=== PATIENT | male | born 1955 | race Caucasian/White ===

== ENCOUNTER 2021-05-13 16:21 | Observation (INO) ==
--- NOTE | 2021-05-13 21:19 | Emergency Department Note ---
History of Present Illness General Chief complaint: Illness Stated complaint: POSTIVE CT Time Seen by Provider: 05/13/21 21:18 Source: patient Mode of arrival: ambulatory Limitations: no limitations History of Present Illness Provider complaint: Referral due to concern for outpatient CT scan and hematuria Onset (ago): week(s) 1 Location: abdomen (Flank) Radiation: non-radiation Severity: mild Pain Consistency: + constant Quality: + sharp Relieved By: + none Exacerbated By: + none Associated symptoms: no chest pain, no cough, no fever/chills, no headaches, no malaise, no nausea/vomiting or no shortness of breath Treatments prior to arrival: none Patient does present from home after being referred in for an outpatient CT scan which was completed due to the patient's hematuria. Patient has not taken anything for pain at home. The patient has had occasional left-sided flank pain. No history of kidney stones. Home Medications Medication Instructions Recorded Confirmed Type vit C,E,zinc,copper-krcpe6i 250 2 cap PO DAILY cap 07/15/19 05/13/21 History mg-lutein 5 mg-zeaxanthin 1 mg capsule (Ocuvite Adult 50 Plus) atorvastatin 10 mg tablet 10 mg PO DAILY #90 tab 03/15/21 05/13/21 Rx Allergies Allergy/AdvReac Type Severity Reaction Status Date / Time No Known Allergies Allergy Verified 05/13/21 20:43 Past Med/Surg History Medical History (Updated 05/14/21 @ 01:19 by Black Kelly MD) Hyperlipidemia Surgical History S/P LASIK surgery Family History Father Cardiac disorder Hypertension Uncle Colorectal cancer Denies family history of Ovarian cancer Prostate cancer Breast cancer Social History Smoking Status: Never smoker Hx Alcohol Use: No Hx Substance Use: No Preferred Language: Belarusian Communication Ability: Effective Visual Impairment: No Limitations Hearing Ability: Normal 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 and A total of 10 systems reviewed and were otherwise negative Physical Exam Vital Signs Vital Signs - 24 hr 05/13/21 16:57 05/13/21 21:19 05/13/21 21:24 Temperature 36.7 C Temperature Source Temporal Artery Scan Pulse Rate 86 71 72 Pulse Rate [Apical] 74 Pulse Rate from SpO2 Sensor 71 Respiratory Rate 20 17 20 Respiratory Effort / Characteristics Non-Labored Spontaneous Respiratory Depth Normal Respiratory Pattern Regular Blood Pressure 117/73 131/76 Blood Pressure [Right Arm] 131/76 Blood Pressure Mean 87 94 Blood Pressure Mean [Right Arm] 94 Pulse Oximetry 97 95 96 Oxygen Delivery Method Room Air Room Air Sepsis Recent Fever Within 48 Hours No Sepsis New/Unexplained Change in Mental Status No Sepsis Action Taken by Nursing No Action Required 05/13/21 21:30 05/13/21 22:00 05/13/21 22:30 Temperature Temperature Source Pulse Rate 71 Pulse Rate [Apical] Pulse Rate from SpO2 Sensor 71 73 68 Respiratory Rate 22 Respiratory Effort / Characteristics Respiratory Depth Respiratory Pattern Blood Pressure 124/77 126/72 124/71 Blood Pressure [Right Arm] Blood Pressure Mean 92 90 88 Blood Pressure Mean [Right Arm] Pulse Oximetry 94 96 96 Oxygen Delivery Method Sepsis Recent Fever Within 48 Hours Sepsis New/Unexplained Change in Mental Status Sepsis Action Taken by Nursing 05/13/21 23:00 05/13/21 23:30 05/14/21 00:00 Temperature Temperature Source Pulse Rate Pulse Rate [Apical] Pulse Rate from SpO2 Sensor 75 71 68 Respiratory Rate Respiratory Effort / Characteristics Respiratory Depth Respiratory Pattern Blood Pressure 124/71 132/83 121/74 Blood Pressure [Right Arm] Blood Pressure Mean 88 99 89 Blood Pressure Mean [Right Arm] Pulse Oximetry 99 97 96 Oxygen Delivery Method Sepsis Recent Fever Within 48 Hours Sepsis New/Unexplained Change in Mental Status Sepsis Action Taken by Nursing 05/14/21 00:30 Temperature Temperature Source Pulse Rate Pulse Rate [Apical] Pulse Rate from SpO2 Sensor 64 Respiratory Rate Respiratory Effort / Characteristics Respiratory Depth Respiratory Pattern Blood Pressure 113/79 Blood Pressure [Right Arm] Blood Pressure Mean 90 Blood Pressure Mean [Right Arm] Pulse Oximetry 95 Oxygen Delivery Method Sepsis Recent Fever Within 48 Hours Sepsis New/Unexplained Change in Mental Status Sepsis Action Taken by Nursing GENERAL: Wearing a mask and glasses. NAD, non-toxic. EYE EXAM: Normal conjunctiva. PERRL, no anisocoria and EOM's grossly intact w/o pain. NECK: Supple, no nuchal rigidity, no adenopathy, non-tender. No signs of meningismus. LUNGS: Clear to auscultation. Normal chest wall mechanics. HEART: NSR, no MRG. ABDOMEN: Abdomen soft, mild suprapubic fullness, normo-active bowel sounds, no masses, no rebound or guarding. BACK: No CVA TTP. SKIN: No rashes and no bruising. UPPER EXTREMITIES: Upper extremities are grossly normal. LOWER EXTREMITIES: Grossly normal, no edema. NEURO EXAM: A&O x3, cranial nerves II-XII grossly intact, normal speech, moves all 4 extremities on command w/o issue. Course Course Cardiac monitoring: An order was placed for continuous cardiac monitoring. The monitor shows a rate of 75 with sinus rhythm. Administered Medications Discontinued Medications Sodium Chloride (Nss 1000ml) 1,000 mls @ 999 mls/hr IV .Q1H1M ONE Stop: 05/13/21 23:53 Last Infusion: 05/14/21 00:28 Dose: 0 mls/hr Documented by: [id number] Admin: 05/13/21 23:03 Dose: 999 mls/hr Documented by: [id number] Medical Decision Making Differential Diagnosis Renal colic, UTI, appendicitis, diverticulitis, mesenteric ischemia, aortic pathology, infections, inflammatory bowel disease, PUD, biliary pathology, as well as other pathologies. Medical Records Attestation: I reviewed the patient's medical records. Home Medications Current Medication List: was personally reviewed by me Laboratory Data Attestation: I reviewed the patient's lab results. Result diagrams: 05/13/21 21:28 05/13/21 21:28 Lab Results 05/13/21 05/13/21 05/13/21 Range/Units 21:28 21:28 21:28 WBC 15.65 H (4.8-10.8) K/uL RBC 3.75 L (4.7-6.1) M/uL Hgb 12.2 L (14.0-18.0) g/dL Hct 35.1 L (42-52) % MCV 93.6 (80-100) fL MCH 32.5 (25-34) pg MCHC 34.8 (32-36) g/dL RDW Std Deviation 45.0 (36.4-46.3) fL RDW Coeff of Terri 13.3 (11.5-14.5) % Plt Count 263 (130-400) K/uL MPV 9.6 (7.4-10.4) fL Immature Gran % (Auto) 0.3 % Neut % (Auto) 51.3 % Lymph % (Auto) 39.1 % [place] % (Auto) 8.2 % Eos % (Auto) 0.8 % Baso % (Auto) 0.3 % Neut # (Auto) 8.04 H (1.4-6.5) K/uL Lymph # (Auto) 6.12 H (1.2-3.4) K/uL [place] # (Auto) 1.29 H (0.11-0.59) K/uL Eos # (Auto) 0.12 (0-0.5) K/uL Baso # (Auto) 0.04 (0-0.2) K/uL Immature Gran # (Auto) 0.04 H (0.00-0.02) K/uL Sodium 139 (136-145) mmol/L Potassium 4.0 (3.5-5.1) mmol/L Chloride 107 (98-107) mmol/L Carbon Dioxide 27 (21-32) mmol/L Anion Gap 5.0 (3-11) BUN 19 H (7-18) mg/dl Creatinine 1.54 H (0.6-1.4) mg/dl Est Cr Clr Drug Dosing Not Reportable Est GFR ( Amer) 54.8 ml/min Est GFR (Non-Af Amer) 47.3 ml/min BUN/Creatinine Ratio 12.5 (10-20) Glucose 100 H (70-99) mg/dl Calcium 9.1 (8.5-10.1) mg/dl Magnesium 1.8 (1.8-2.4) mg/dl Total Bilirubin 0.8 (0.2-1) mg/dl AST 12 L (15-37) U/L ALT 14 (12-78) U/L Alkaline Phosphatase 86 (45-117) U/L Troponin I < 0.015 (0-0.045) ng/ml Total Protein 7.7 (6.4-8.2) gm/dl Albumin 3.6 (3.4-5.0) gm/dl Globulin 4.1 H (2.5-4.0) gm/dl Albumin/Globulin Ratio 0.9 (0.9-2) TSH 0.963 (0.300-4.500) uIu/ml Urine Color Red Urine Appearance Turbid A (Clear) Urine pH (4.5-7.5) Ur Specific [place] 1.017 (1.000-1.030) Urine Protein (Negative) Urine Glucose (UA) (Negative) Urine Ketones (Negative) Urine Blood (Negative) Urine Nitrite (Negative) Urine Bilirubin (Negative) Urine Urobilinogen (Negative) Ur Leukocyte Esterase (Negative) Urine RBC >30 H (0-4) /hpf Urine WBC 10-30 H (0-5) /hpf Ur Epithelial Cells 0-5 (0-5) /lpf Urine Bacteria Negative (Negative) COVID-19 Eval Order SARS-CoV-2 (PCR) (Negative) 05/13/21 05/13/21 Range/Units 23:45 23:45 WBC (4.8-10.8) K/uL RBC (4.7-6.1) M/uL Hgb (14.0-18.0) g/dL Hct (42-52) % MCV (80-100) fL MCH (25-34) pg MCHC (32-36) g/dL RDW Std Deviation (36.4-46.3) fL RDW Coeff of Terri (11.5-14.5) % Plt Count (130-400) K/uL MPV (7.4-10.4) fL Immature Gran % (Auto) % Neut % (Auto) % Lymph % (Auto) % [place] % (Auto) % Eos % (Auto) % Baso % (Auto) % Neut # (Auto) (1.4-6.5) K/uL Lymph # (Auto) (1.2-3.4) K/uL [place] # (Auto) (0.11-0.59) K/uL Eos # (Auto) (0-0.5) K/uL Baso # (Auto) (0-0.2) K/uL Immature Gran # (Auto) (0.00-0.02) K/uL Sodium (136-145) mmol/L Potassium (3.5-5.1) mmol/L Chloride (98-107) mmol/L Carbon Dioxide (21-32) mmol/L Anion Gap (3-11) BUN (7-18) mg/dl Creatinine (0.6-1.4) mg/dl Est Cr Clr Drug Dosing Est GFR ( Amer) ml/min Est GFR (Non-Af Amer) ml/min BUN/Creatinine Ratio (10-20) Glucose (70-99) mg/dl Calcium (8.5-10.1) mg/dl Magnesium (1.8-2.4) mg/dl Total Bilirubin (0.2-1) mg/dl AST (15-37) U/L ALT (12-78) U/L Alkaline Phosphatase (45-117) U/L Troponin I (0-0.045) ng/ml Total Protein (6.4-8.2) gm/dl Albumin (3.4-5.0) gm/dl Globulin (2.5-4.0) gm/dl Albumin/Globulin Ratio (0.9-2) TSH (0.300-4.500) uIu/ml Urine Color Urine Appearance (Clear) Urine pH (4.5-7.5) Ur Specific [place] (1.000-1.030) Urine Protein (Negative) Urine Glucose (UA) (Negative) Urine Ketones (Negative) Urine Blood (Negative) Urine Nitrite (Negative) Urine Bilirubin (Negative) Urine Urobilinogen (Negative) Ur Leukocyte Esterase (Negative) Urine RBC (0-4) /hpf Urine WBC (0-5) /hpf Ur Epithelial Cells (0-5) /lpf Urine Bacteria (Negative) COVID-19 Eval Order Covid19 at [facility] SARS-CoV-2 (PCR) NEGATIVE (Negative) Imaging Data Radiologist's Impression: I reviewed the patient's CT scan from earlier today which showed a bladder mass and renal mass with likely metastasis. MDM Narrative Patient did present with concern for abnormal outpatient CT scan with hematuria. Patient did have blood work completed showed a white count of 15 with a hemoglobin of 12 and mild kidney dysfunction with a creatinine 1.5. I did review the patient's outpatient CT scan which showed concern for bladder and renal mass with likely associated metastatic disease. I did convey this to the patient the patient's at bedside. After further discussion the patient was still having suprapubic fullness the patient did have a bladder scan completed which did show retention of almost 1 L. A Deutsch catheter was placed. I did speak with the on-call hospitalist Dr. Huffman and the patient was admitted to the medicine service. Impression & Plan Left kidney mass, Mass of bladder, Hematuria, Acute urinary retention Discharge Plan Visit Data Chief Complaint: Illness Stated Complaint: POSTIVE CT ED Provider: Black Kelly Discharge Problem: Left kidney mass, Mass of bladder, Hematuria, Acute urinary retention Patient Disposition: Admitted As Inpatient Forms Stand Alone Forms: My [facility] Focus Prescriptions Prescriptions: No Action atorvastatin 10 mg tablet 10 mg PO DAILY Qty: 90 RF: 3 Ocuvite Adult 50 Plus 250-5-1 mg capsule 2 cap PO DAILY RF: 0 Referrals Referrals: Young Arenas MD [Primary Care Provider] -
[2021-05-13 21:41] LABS: Hematocrit (blood only) 35.1 % (42-52); Hemoglobin 12.2 g/dL (14.0-18.0); Mean Corpuscular Hemoglobin 32.5 pg (25-34); Mean Corpuscular Hgb Conc 34.8 g/dL (32-36); Mean Corpuscular Volume 93.6 fL (80-100); Mean Platelet Volume 9.6 fL (7.4-10.4); Platelet Count 263 K/uL (130-400); RDW Coefficient of Variation 13.3 % (11.5-14.5); Red Blood Count 3.75 M/uL (4.7-6.1); White Blood Count 15.65 K/uL (4.8-10.8)
[2021-05-13 22:01] LABS: Albumin Level 3.6 gm/dl (3.4-5.0); Aspartate Aminotransferase 12 U/L (15-37); BUN Creatinine Ratio 12.5 (10-20); Blood Urea Nitrogen 19 mg/dl (7-18); Calcium 9.1 mg/dl (8.5-10.1); Carbon Dioxide 27 mmol/L (21-32); Chloride 107 mmol/L (98-107); Est GFR (African American) 54.8 ml/min; Est GFR (Non-African American) 47.3 ml/min; Glucose 100 mg/dl (70-99); Magnesium 1.8 mg/dl (1.8-2.4); Sodium 139 mmol/L (136-145)
[2021-05-13 22:07] LABS: Appearance Urine Turbid (Clear); Color Urine Red; Specific Gravity Urine 1.017 (1.000-1.030)
[2021-05-13 22:11] LABS: Alanine Aminotransferase 14 U/L (12-78); Albumin Globulin Ratio 0.9 (0.9-2); Alkaline Phosphatase 86 U/L (45-117); Bilirubin,Total 0.8 mg/dl (0.2-1); Globulin 4.1 gm/dl (2.5-4.0); Thyroid Stimulating Hormone 0.963 uIu/ml (0.300-4.500); Total Protein 7.7 gm/dl (6.4-8.2); Troponin I < 0.015 ng/ml (0-0.045)
[2021-05-13 22:18] LABS: Epithelial Cell Urine 0-5 /lpf (0-5); RBC Urine >30 /hpf (0-4)
[2021-05-13 22:20] LABS: Bacteria Urine Negative (Negative)
[2021-05-13 22:44] LABS: Basophils # (auto) 0.04 K/uL (0-0.2); Basophils % (auto) 0.3 %; Eosinophils # (auto) 0.12 K/uL (0-0.5); Eosinophils % (auto) 0.8 %; Immature Granulocytes # (auto) 0.04 K/uL (0.00-0.02); Immature Granulocytes % (auto) 0.3 %; Lymphocytes # (auto) 6.12 K/uL (1.2-3.4); Lymphocytes % (auto) 39.1 %; Monocytes # (auto) 1.29 K/uL (0.11-0.59); Monocytes % (auto) 8.2 %; Neutrophils # (auto) 8.04 K/uL (1.4-6.5); Neutrophils % (auto) 51.3 %
[2021-05-13] MEDS ORDERED: SODIUM CHLORIDE 0.9% 1000ML 1,000 ML IV ONE (22:53)
--- NOTE | 2021-05-14 00:40 | History & Physical Report ---
Date of Service May 14, 2021 Assessment & Plan (1) Left kidney mass: Plan: Left kidney mass/bladder mass/gross hematuria/urinary retention/lymphadenopathy suggesting metastases- Admit to medical surgical floor NPO Continue Deutsch catheter placed in ED NSS@100 mils per hour Ceftriaxone 2 g IV daily Zofran 4 mg IV every 6 hours as needed Famotidine 20 mg IV every 12 hours Consult urology (2) Mass of bladder: Plan: See above (3) Hematuria: Plan: See above (4) Acute urinary retention: Plan: See above (5) Hyperlipidemia: Plan: Hold atorvastatin (6) Acute kidney injury: Plan: Creatinine 1.54 upon admission, with range 1.19-1.33. NSS 100 mils per hour Repeat laboratories serially History of Present Illness Chief Complaint: The patient is referred into the emergency department due to an abnormal outpatient CT scan and gross hematuria Primary Care Provider: Young Arenas MD The patient is a 65-year-old male with a past medical history including hyperlipidemia, who had a CT scan performed in the outpatient setting due to gross hematuria, which revealed a large infiltrative mass arising from the lower pole the left kidney consistent with a neoplasm, which may reflect a renal cell carcinoma or synchronous transitional cell carcinoma given an apparent bladder mass. A 9 x 8.4 cm round masslike abnormality within the posterior aspect of the bladder suspicious for bladder neoplasm. Clot could appear similar, although density is less than expected. This could be confirmed with cystoscopy. There were numerous mildly enlarged left periaortic, left iliac chain and left inguinal lymph nodes suspicious for [place] spread of disease. Allergies Allergy/AdvReac Type Severity Reaction Status Date / Time No Known Allergies Allergy Verified 05/13/21 20:43 Home Medications Medication Instructions Recorded Confirmed Type vit C,E,zinc,copper-ytxax4n 250 2 cap PO DAILY cap 07/15/19 05/13/21 History mg-lutein 5 mg-zeaxanthin 1 mg capsule (Ocuvite Adult 50 Plus) atorvastatin 10 mg tablet 10 mg PO DAILY #90 tab 03/15/21 05/13/21 Rx Past Med/Surg History Medical History (Updated 05/14/21 @ 05:01 by Roel Goodwin MD) Hyperlipidemia Surgical History S/P LASIK surgery Family History Father Cardiac disorder Hypertension Uncle Colorectal cancer Denies family history of Ovarian cancer Prostate cancer Breast cancer Social History Smoking Status: Former smoker Smoking End Date: 32 years ago; Hx Alcohol Use: No Hx Substance Use: No Preferred Language: Filipino Communication Ability: Effective Visual Impairment: No Limitations Hearing Ability: Normal Watershed Program Manager Required: No Beliefs That Will Affect Care: None marital status: Current Living Situation: Spouse current occupational status: employed current occupation: Employee Relations Specialist Feels Safe at Home: Yes Safety Concerns: Feels Safe At This Time Childhood Exposure to Second-Hand Smoke: No Dental Care, Regularly: Yes Physical Activity Frequency: 1-2 Times per Week Assistive Devices: Glasses Review of Systems Review of Systems: The patient denies chest pain, palpitations, shortness of breath, dyspnea on exertion, cough, lower extremity swelling, sore throat, fevers, chills, sweats, nausea, vomiting, diarrhea , constipation, blood in stool, lightheadedness, dizziness, headache, memory loss, loss of consciousness, rash, imbalance, focal or generalized weakness, numbness or tingling in arms or legs, generalized arthralgias or myalgias, back or neck pain, or night sweats. The review of systems is otherwise negative other than for that already noted above, and at least 10 systems have been reviewed. Physical Exam Physical Exam: The patient is awake, alert and oriented 3, well developed and well nourished, normocephalic and atraumatic, lying in bed and in no acute distress. HEENT--PERRL, EOMI, mucous membranes and oropharynx dry. Neck--supple. No JVD. No bruits. Thyroid normal, trachea midline, no adenopathy. Heart--normal S1 and S2. No murmurs, rubs or gallops. Lungs--clear bilaterally, no respiratory distress, no accessory muscle use. Abdomen--normal bowel sounds and soft. Nontender. Nondistended. Extremities--no cyanosis or clubbing. No edema. Dermatologic--normal skin turgor, normal color, no abnormal lymph nodes, no rash. Neurologic--cranial nerves II through XII grossly intact. Rheumatologic--normal range of motion. Psychiatric--normal affect. Results & Data Results & Data ([facility]) Vital Signs (Past 12 Hours) Vital Signs Temp Pulse Pulse Resp BP BP Pulse Ox 05/13/21 23:30 132/83 97 05/13/21 23:00 124/71 99 05/13/21 22:30 124/71 96 05/13/21 22:00 126/72 96 05/13/21 21:30 71 22 124/77 94 05/13/21 21:24 72 74 20 131/76 96 05/13/21 21:19 71 17 131/76 95 05/13/21 16:57 98.1 F 86 20 117/73 97 Laboratory Results Laboratory Results WBC 15.65 K/uL (4.8-10.8) H 05/13/21 21: RBC 3.75 M/uL (4.7-6.1) L 05/13/21 21: Hgb 12.2 g/dL (14.0-18.0) L 05/13/21 21: Hct 35.1 % (42-52) L 05/13/21 21: MCV 93.6 fL (80-100) 05/13/21 21: MCH 32.5 pg (25-34) 05/13/21 21: MCHC 34.8 g/dL (32-36) 05/13/21 21: RDW Std Deviation 45.0 fL (36.4-46.3) 05/13/21 21: RDW Coeff of Terri 13.3 % (11.5-14.5) 05/13/21: Plt Count 263 K/uL (130-400) 05/13/21 21: MPV 9.6 fL (7.4-10.4) 05/13/21 21: Immature Gran % (Auto) 0.3 % 05/13/21 21: Neut % (Auto) 51.3 % 05/13/21 21: Lymph % (Auto) 39.1 % 05/13/21 21: [place] % (Auto) 8.2 % 05/13/21 21: Eos % (Auto) 0.8 % 05/13/21 21: Baso % (Auto) 0.3 % 05/13/21 21: Neut # (Auto) 8.04 K/uL (1.4-6.5) H 05/13/21 21: Lymph # (Auto) 6.12 K/uL (1.2-3.4) H 05/13/21: [place] # (Auto) 1.29 K/uL (0.11-0.59) H 05/13/21: Eos # (Auto) 0.12 K/uL (0-0.5) 05/13/21: Baso # (Auto) 0.04 K/uL (0-0.2) 05/13/21: Immature Gran # (Auto) 0.04 K/uL (0.00-0.02) H 05/13/21: Sodium 139 mmol/L (136-145) 05/13/21: Potassium 4.0 mmol/L (3.5-5.1) 05/13/21: Chloride 107 mmol/L (98-107) 05/13/21: Carbon Dioxide 27 mmol/L (21-32) 05/13/21: Anion Gap 5.0 (3-11) 05/13/21: BUN 19 mg/dl (7-18) H 05/13/21: Creatinine 1.54 mg/dl (0.6-1.4) H 05/13/21: Est Cr Clr Drug Dosing Not Reportable 05/13/21: Est GFR ( Amer) 54.8 ml/min 05/13/21: Est GFR (Non-Af Amer) 47.3 ml/min 05/13/21: BUN/Creatinine Ratio 12.5 (10-20) 05/13/21: Glucose 100 mg/dl (70-99) H 05/13/21: Calcium 9.1 mg/dl (8.5-10.1) 05/13/21: Magnesium 1.8 mg/dl (1.8-2.4) 05/13/21: Total Bilirubin 0.8 mg/dl (0.2-1) 05/13/21: AST 12 U/L (15-37) L 05/13/21: ALT 14 U/L (12-78) 05/13/21 21: Alkaline Phosphatase 86 U/L (45-117) 05/13/21 21: Troponin I < 0.015 ng/ml (0-0.045) 05/13/21 21: Total Protein 7.7 gm/dl (6.4-8.2) 05/13/21 21: Albumin 3.6 gm/dl (3.4-5.0) 05/13/21: Globulin 4.1 gm/dl (2.5-4.0) H 05/13/21 21: Albumin/Globulin Ratio 0.9 (0.9-2) 05/13/21: TSH 0.963 uIu/ml (0.300-4.500) 05/13/21 21: Urine Color Red 05/13/21 21: Urine Appearance Turbid (Clear) A 05/13/21 21: Urine pH (4.5-7.5) 05/13/21 21: Ur Specific [place] 1.017 (1.000-1.030) 05/13/21 21: Urine Protein (Negative) 05/13/21 21: Urine Glucose (UA) (Negative) 05/13/21 21: Urine Ketones (Negative) 05/13/21 21: Urine Blood (Negative) 05/13/21 21: Urine Nitrite (Negative) 05/13/21 21: Urine Bilirubin (Negative) 05/13/21 21: Urine Urobilinogen (Negative) 05/13/21 21: Ur Leukocyte Esterase (Negative) 05/13/21 21: Urine RBC >30 /hpf (0-4) H 05/13/21 21: Urine WBC 10-30 /hpf (0-5) H 05/13/21 21:28 Ur Epithelial Cells 0-5 /lpf (0-5) 05/13/21 21: Urine Bacteria Negative (Negative) 05/13/21 21:28 COVID-19 Eval Order Covid19 at [facility] 05/13/21 23:45 SARS-CoV-2 (PCR) NEGATIVE (Negative) 05/13/21 23:45 Diagnostic Findings [facility], [id number] CT Scan Report Patient: LINDY MAYO EAdmit Date: 05/13/21#: [id number]: [address] ID:[id number]: [facility]: 1955[facility] Zip: [place] [id number]: 65Location: CTSex: MRoom/Bed:Att Phy: Graciela Andrews PA-CDiagnosis: HEMATURIAPri Phy: Young Arenas MDService Date: 05/13/21Fa Phy:Interpreting Phy: Kvng Biswas [facility] Phy: Ordering Phy: Graciela Andrews PA-C cc: ~ CT OF THE ABDOMEN AND PELVIS WITHOUT CONTRAST CLINICAL HISTORY: R31.9 - Hematuria, unspecified COMPARISON STUDY: No previous studies for comparison. TECHNIQUE: Axial images of the abdomen and pelvis were obtained without IV contrast. Images were reviewed in the axial, sagittal, and coronal planes. Automated exposure control was utilized for the study. A dose lowering technique was utilized adhering to the principles of ALARA. FINDINGS: The lung bases are unremarkable. There is a 4 mm left renal calculus. There are no ureteral calculi. There is mild left hydronephrosis. Note is made of left perinephric fluid and stranding. In addition, there is an infiltrative heterogeneous mass arising from the lower pole of the left kidney. This is suboptimally assessed on this unenhanced exam but measures approximately 8.3 x 7.1 cm. This may extend into the renal sinus with indistinctness of the inferior left renal sinus. There is no right hydronephrosis. Note is made of a 9 x 8.4 cm round mass-like abnormality within the posterior aspect of the bladder. The attenuation of this abnormality is 23 Hounsfield units. The prostate is moderately enlarged. Note is made of multiple enlarged left para-aortic, left iliac chain and left inguinal lymph nodes. Index left inguinal lymph node measures 2.1 x 1.4 cm. Index external iliac lymph node measures 2.4 x 1.5 cm. Index left common iliac node measures 2.4 x 1.6 cm. There is no evidence for a bowel obstruction. The appendix is normal. Small fat-containing left inguinal hernia is present. No suspicious lesions are identified within visualized skeletal structures. IMPRESSION: 1. Large infiltrative mass arising from the lower pole of the left kidney with indistinctness of the left renal sinus. This is suboptimally assessed on unenhanced CT but is consistent with a neoplasm. This may reflect a renal cell carcinoma or a synchronous transitional cell carcinoma given the apparent bladder mass. Mild left hydronephrosis. Urology consultation is recommended. 2. 9 x 8.4 cm round mass-like abnormality within the posterior aspect of the bladder. This is suspicious for a bladder neoplasm. Clot could appear similar although density is less than expected. This could be correlated with cystoscopy. 3. Numerous mildly enlarged left periaortic, left iliac chain and left inguinal lymph nodes which are suspicious for [place] spread of disease. 4. 4 mm left renal calculus. No ureteral calculi. ACT 112: Positive. There are findings on this exam that require communication between the performing entity and the patient following Patient Test Result Information Act ([place] Act 112) guidelines. Electronically signed by: Kvng Biswas M.D. 05/13/2021 4:04 PM Dictated: 05/13/21 1547Transcribed: 05/13/21 1547 Code Status & VTE Plan Code Status Full code VTE Prophylaxis Plan VTE Prophylaxis will be ordered: Yes PG Care Time/CCT Total # of Minutes Spent Total Time Spent with Patient: Total time spent is greater than 50% in coordination of care (as documented) at patient's floor/unit and/or counseling patient: Coding Level of Care Code 66416 Initial Inpt Care Lvl 2 Diagnoses Left kidney mass N28.89 Mass of bladder N32.89 Hematuria R31.0 Hematuria type: gross Acute urinary retention R33.8 Hyperlipidemia E78.5 Acute kidney injury N17.9 (1) Hematuria Hematuria type: gross Qualified Code(s): R31.0 - Gross hematuria
[2021-05-14] MEDS ORDERED: ONDANSETRON INJ 2 MG/ML 2 ML VIAL IV PRN ×2 (02:59→14:40)
--- NOTE | 2021-05-14 03:12 | Urology Consultation ---
Date of Consultation May 14, 2021 Assessment & Plan (1) Left kidney mass: Patient is admitted to the hospital by the hospitalist service: Patient's renal mass along with a history of hematuria raise a concern for malignancy For the present time we will continue Deutsch's catheter and it appears patent at this time. If the catheter becomes clogged irrigation can be employed to ensure it functions properly. If simple irrigation methods are unsuccessful consideration can be given using continuous bladder irrigation. Due to the concern for malignancy we will discuss case with Dr. Myers of urology to see if cystoscopy will be required for further diagnostic data and also to see if any additional imaging is required due to the patient's renal mass Further recommendations will be forthcoming History of Present Illness Reason for Consultation: Renal mass and hematuria Attending Physician: Roel Goodwin MD History of Present Illness This is a 65-year-old male who presented to the emergency department secondary to gross hematuria and a renal mass. Patient notes he was in his usual state of health until approximately 2 days ago the patient developed gross hematuria. Because of this he saw one of his outpatient physicians ordered a CAT scan. This CAT scan was reviewed and revealed a large mass arising from the lower pole of the left kidney. Interpreting radiologist raise a concern for neoplasm. Mild left hydronephrosis was noted. Patient was also noted to have a 9 cm masslike abnormality in the posterior aspect of the bladder also suspicious for malignancy although blood clot could not be excluded. Patient was noted to have some adenopathy in the left periaortic, left iliac, and left inguinal regions which were suspicious for malignant adenopathy. Since having this CT scan CT scan the patient noted some difficulty urinating so he presented to the emergency department. In the emergency department the patient did have labs which revealed a white blood cell count of 15.6. His hemoglobin and hematocrit were 12.2 and 35.1 with a platelet count in normal range. Chemistry profile showed his sodium and potassium were normal. BUN and creatinine were elevated at 19 and 1.5. A urinalysis was performed but did not have accurate interpretation due to the amount of blood. A Covid test was performed and was noted to be negative. In the emergency department the patient did have a Deutsch catheter placed which was irrigated and the patient noted some significant relief from not being able to urinate. I did question patient about urinary history and he has never had hematuria before 2 days ago. He notes that when he does urinate he can fully empty his bladder and he notes a good urine stream and denies any urinary hesitancy. He also denies any dysuria. He denies any back or flank pain. He denies any nausea or vomiting. He denies any abdominal pain. The patient denies any weight loss. He has a remote history of smoking and has never had any abdominal surgeries. He denies any exposures to any chemicals pesticides or asbestos. At the time of my exam he is resting comfortably in bed was in no distress. Allergies Allergy/AdvReac Type Severity Reaction Status Date / Time No Known Allergies Allergy Verified 05/13/21 20:43 Home Medications Medication Instructions Recorded Confirmed Type vit C,E,zinc,copper-svpxp0x 250 2 cap PO DAILY cap 07/15/19 05/13/21 History mg-lutein 5 mg-zeaxanthin 1 mg capsule (Ocuvite Adult 50 Plus) atorvastatin 10 mg tablet 10 mg PO DAILY #90 tab 03/15/21 05/13/21 Rx Patient History Medical History Hyperlipidemia Surgical History S/P LASIK surgery Family History Father Cardiac disorder Hypertension Uncle Colorectal cancer Denies family history of Ovarian cancer Prostate cancer Breast cancer Social History Smoking Status: Never smoker Hx Alcohol Use: No Hx Substance Use: No Preferred Language: Bolivian Communication Ability: Effective Visual Impairment: No Limitations Hearing Ability: Normal Ct Scan Technologist Required: No marital status: Current Living Situation: Spouse current occupational status: employed current occupation: Non Emergency Services Ambulance Driver Feels Safe at Home: Yes Childhood Exposure to Second-Hand Smoke: No Dental Care, Regularly: Yes Physical Activity Frequency: 1-2 Times per Week Review of Systems Constitutional: no fever, no chills and no weight loss Eyes: no diplopia Ear, Nose, Mouth, Throat: no ear pain Respiratory: no cough and no dyspnea Cardiovascular: no chest pain Gastrointestinal: no abdominal pain, no nausea and no vomiting Genitourinary: + hematuria; no dysuria, no difficulty urinating or no flank pain Musculoskeletal: no back pain Integumentary: no rash Neurologic: no localized weakness Physical Exam Constitutional: well developed and well nourished; no acute distress Eyes: no conjunctival abnormality ENMT: Ears: no hearing impairment Neck: trachea midline Respiratory: normal respiratory effort; no respiratory distress and no labored breathing Cardiovascular: Rate/Rhythm: regular rate and regular rhythm Gastrointestinal (Abdomen): Abdomen is soft and nondistended. Palpation did not cause pain. Musculoskeletal: No calf tenderness Skin: no rashes Neurologic: moves all extremities Genitourinary: no CVA tenderness Deutsch catheter is in place draining gr ossly bloody urine but appears patent. Results & Data ([facility]) Vital Signs (Past 12 Hours) Vital Signs Temp Pulse Pulse Resp BP BP Pulse Ox 05/14/21 02:39 58 L 17 106/64 96 05/14/21 02:30 58 L 17 106/64 96 05/14/21 02:00 54 L 19 121/72 93 05/14/21 01:30 58 L 17 126/77 95 05/14/21 01:00 60 17 146/92 H 94 05/14/21 00:30 113/79 95 05/14/21 00:00 121/74 96 05/13/21 23:30 132/83 97 05/13/21 23:00 124/71 99 05/13/21 22:30 124/71 96 05/13/21 22:00 126/72 96 05/13/21 21:30 71 22 124/77 94 05/13/21 21:24 72 74 20 131/76 96 05/13/21 21:19 71 17 131/76 95 05/13/21 16:57 36.7 C 86 20 117/73 97 PG Care Time/CCT Total # of Minutes Spent Total Time Spent with Patient: Total time spent is greater than 50% in coordination of care (as documented) at patient's floor/unit and/or counseling patient: Coding Level of Care Code 61273 Inpt Consult Level 5 Diagnoses Left kidney mass N28.89
[2021-05-14] MEDS: SODIUM CHLORIDE 0.9% 1000ML 1,000 ML IV SCH ×2 (03:37→18:15)
[2021-05-14] MEDS: cefTRIAXone SODIUM 2,000 MG in DEXTROSE 5% 50 ML IV SCH (03:47)
[2021-05-14] MEDS: FAMOTIDINE 20 MG in SYRINGE 3 ML IV SCH ×2 (06:06→21:35)
[2021-05-14 07:43] LABS: Hematocrit (blood only) 33.4 % (42-52); Hemoglobin 11.1 g/dL (14.0-18.0); Mean Corpuscular Hemoglobin 31.4 pg (25-34); Mean Corpuscular Hgb Conc 33.2 g/dL (32-36); Mean Corpuscular Volume 94.4 fL (80-100); Mean Platelet Volume 9.5 fL (7.4-10.4); Platelet Count 251 K/uL (130-400); RDW Coefficient of Variation 13.2 % (11.5-14.5); RDW Standard Deviation 45.6 fL (36.4-46.3); Red Blood Count 3.54 M/uL (4.7-6.1); White Blood Count 11.72 K/uL (4.8-10.8)
[2021-05-14 08:21] LABS: BUN Creatinine Ratio 14.3 (10-20); Basophils # (auto) 0.04 K/uL (0-0.2); Basophils % (auto) 0.3 %; Calcium 8.6 mg/dl (8.5-10.1); Creatinine Clr Calc Pharmacy 76.3 ml/min; Eosinophils # (auto) 0.17 K/uL (0-0.5); Eosinophils % (auto) 1.5 %; Est GFR (African American) 69.2 ml/min; Est GFR (Non-African American) 59.7 ml/min; Immature Granulocytes # (auto) 0.02 K/uL (0.00-0.02); Immature Granulocytes % (auto) 0.2 %; Lymphocytes # (auto) 5.28 K/uL (1.2-3.4); Lymphocytes % (auto) 45.1 %; Monocytes # (auto) 0.94 K/uL (0.11-0.59); Neutrophils # (auto) 5.27 K/uL (1.4-6.5); Neutrophils % (auto) 44.9 %; Smudge Cells Present
[2021-05-14 08:24] LABS: Albumin Globulin Ratio 0.8 (0.9-2); Bilirubin,Total 0.6 mg/dl (0.2-1); Globulin 3.7 gm/dl (2.5-4.0); Total Protein 6.7 gm/dl (6.4-8.2)
--- NOTE | 2021-05-14 08:45 | Electrocardiogram Report ---
Test Reason : Blood Pressure : / mmHG Vent. Rate : 074 BPM Atrial Rate : 074 BPM P-R Int : 138 ms QRS Dur : 130 ms QT Int : 420 ms P-R-T Axes : 063 029 033 degrees QTc Int : 466 ms Normal sinus rhythm Right bundle branch block Abnormal ECG No previous ECGs available Confirmed by Aris Quinn ([id number]) on 05/14/2021 8:45:08 AM Referred By: REFERRED SELF Confirmed By:Aris Quinn
--- NOTE | 2021-05-14 09:07 | Urology Progress Note ---
Date of Service May 14, 2021 Assessment & Plan (1) Left kidney mass: (2) Hematuria: Plan: 65 yo M admitted for gross hematuria secondary to left renal mass, probable bladder mass vs clot. - Plan of care reviewed with Dr. Myers, urologist oracle hyperion consultant. - Afebrile, lab work reviewed - creatinine 1.27, WBC 11.72, Hgb 11.1 - continue to trend. - Urine culture pending - on IV Ceftriaxone, follow culture. - Deutsch catheter intact, patent and draining dark red urine. - Findings/CT reviewed with Dr. Myers - left renal mass with probable clot retention in bladder, but cannot rule out bladder mass. - Given gross hematuria in context of clot/bladder mass, will proceed with OR for cystoscopy, clot evacuation, and possible TURBT. - Patient is agreeable to surgical intervention today. - Risks and benefits to be reviewed with patient by Dr. Myers. OR notified. - Will cover with scheduled IV Ceftriaxone preoperatively. - Keep NPO for procedure today. - Continue to monitor UOP. Manually irrigate catheter gently prn clot retention, suprapubic pain. Admission and Anticipated Discharge Date Admission Date: May 14, 2021 Supervising Physician Co-Signing Physician Notes plan for cysto and clot evac now - risks, benefits, expectations reviewed Subjective Pt awake, alert and sitting up in bed. at bedside. No issues overnight. Denies flank, abdominal, or suprapubic pain or pressure. Tolerating Deutsch - intact, patent and draining dark red urine. Decreased urine output this AM per nursing. No nausea or vomiting. No fever or chills. No CP or SOB. NPO since midnight. No additional concerns today. Chart review: Afebrile. Creatinine 1.27, WBC 11.72, Hgb 11.1. UC&S pending. On IV Ceftriaxone. Review of Systems Constitutional: as per Subjective / HPI Respiratory: no dyspnea Cardiovascular: no chest pain Gastrointestinal: as per Subjective / HPI Genitourinary: + as per Subjective / HPI Physical Exam Constitutional: well developed and well nourished; no acute distress and not ill appearing Respiratory: normal respiratory effort and able to speak in complete sentences; no respiratory distress and no labored breathing Cardiovascular: Extremities: no pedal edema Gastrointestinal (Abdomen): Inspection/Auscultation: abdomen normal to i nspection; abdomen not distended Percussion/Palpation: abdomen soft; abdomen nontender and no guarding Musculoskeletal: Head/Neck/Chest: normocephalic and head atraumatic Extremities: extremities normal to inspection Skin: no rashes, warm and dry Neurologic: moves all extremities and awake Psychiatric: A+Ox3, euthymic affect Genitourinary: no CVA tenderness Deutsch intact, patent and draining dark red urine Results & Data ([facility]) Vital Signs (Past 12 Hours) Vital Signs Temp Pulse Pulse Pulse Resp BP BP 05/14/21 03:00 36.8 C 72 14 106/65 05/14/21 02:39 58 L 17 106/64 05/14/21 02:30 58 L 17 106/64 05/14/21 02:00 54 L 19 121/72 05/14/21 01:30 58 L 17 126/77 05/14/21 01:00 60 17 146/92 H 05/14/21 00:30 113/79 05/14/21 00:00 121/74 05/13/21 23:30 132/83 05/13/21 23:00 124/71 05/13/21 22:30 124/71 05/13/21 22:00 126/72 05/13/21 21:30 71 22 124/77 05/13/21 21:24 72 74 20 131/76 05/13/21 21:19 71 17 131/76 Pulse Ox 05/14/21 03:00 93 05/14/21 02:39 96 05/14/21 02:30 96 05/14/21 02:00 93 05/14/21 01:30 95 05/14/21 01:00 94 05/14/21 00:30 95 05/14/21 00:00 96 05/13/21 23:30 97 05/13/21 23:00 99 05/13/21 22:30 96 05/13/21 22:00 96 05/13/21 21:30 94 05/13/21 21:24 96 05/13/21 21:19 95 PG Care Time/CCT Total # of Minutes Spent Total Time Spent with Patient: Total time spent is greater than 50% in coordination of care (as documented) at patient's floor/unit and/or counseling patient: Coding Level of Care Code 24976 Subseq Hosp Care Lvl 2 Diagnoses Left kidney mass N28.89 Hematuria R31.0 Hematuria type: gross (1) Hematuria Hematuria type: gross Qualified Code(s): R31.0 - Gross hematuria
[2021-05-14] MEDS ORDERED: PROPOFOL IV EMULSION 10 MG/ML 20 ML VIAL IV ONE (14:23)
[2021-05-14] MEDS ORDERED: LIDOCAINE 2% 2 ML VIAL/AMP(20MG/ML) INFIL ONE (14:23)
[2021-05-14] MEDS ORDERED: PHENYLEPHRINE 100MCG/ML 5ML SYR ONE (14:23)
[2021-05-14] MEDS ORDERED: ONDANSETRON INJ 2 MG/ML 2 ML VIAL ONE (14:23)
[2021-05-14] MEDS ORDERED: ePHEDrine sulfate 50 MG/ML SYR ONE (14:23)
[2021-05-14] MEDS ORDERED: MIDAZOLAM HCL 1 MG/ML 2ML VIAL ONE (14:24)
[2021-05-14] MEDS ORDERED: fentaNYL citrate 100 MCG/2 ML VIAL ONE (14:24)
[2021-05-14] MEDS ORDERED: ATROPINE SULFATE 0.1 MG/ML 10ML SYR IV PRN (14:40)
[2021-05-14] MEDS ORDERED: HYDROmorphone INJ 1 MG/ML SYRINGE IV PRN (14:40)
[2021-05-14] MEDS ORDERED: PHENYLEPHRINE 100MCG/ML 5ML SYR IV PRN (14:40)
[2021-05-14] MEDS ORDERED: MEPERIDINE HCL 25 MG/ML CARP/VIAL IV PRN (14:40)
[2021-05-14] MEDS ORDERED: ePHEDrine sulfate 50 MG/ML AMP IV PRN (14:40)
[2021-05-14] MEDS ORDERED: fentaNYL citrate 100 MCG/2 ML VIAL IV PRN (14:40)
[2021-05-14] MEDS ORDERED: LABETALOL HCL IV 5 MG/ML 20ML IV PRN (14:40)
--- NOTE | 2021-05-14 14:44 | Anesthesiology Consultation ---
Date of Service May 14, 2021 Assessment & Plan (1) Encounter for pre-operative examination: Chart Review Chart Review: Acceptable Risk for Surgery and Patient NOT seen in Pre Admission Testing Consults Requested none History Surgery Operation Date: 05/14/21 14:40 Proposed Procedures p Cystoscopy, Clot Evacuation, Possible Transurethral Resection Bladder Tumor - Mason Myers MD Height/Weight Height: 6 ft 2 in Weight: 103.3 kg Allergies Allergy/AdvReac Type Severity Reaction Status Date / Time No Known Allergies Allergy Verified 05/13/21 20:43 Medications Home Medications Medication Instructions Recorded Confirmed Last Taken vit C,E,zinc,copper-lmvtj8k 250 2 cap PO DAILY cap 07/15/19 05/13/21 Unknown mg-lutein 5 mg-zeaxanthin 1 mg capsule (Ocuvite Adult 50 Plus) atorvastatin 10 mg tablet 10 mg PO DAILY #90 tab 03/15/21 05/13/21 Unknown Active Medications Generic Name Dose Route Start Last Admin Trade Name Freq PRN Reason Stop Dose Admin Ceftriaxone Sodium 2,000 mg/ 70 mls @ 100 mls/hr 05/14/21 04:00 05/14/21 04:30 Dextrose IV 05/24/21 03:59 Infused Q24H DUSTIN Infusion Protocol Sodium Chloride 1,000 mls @ 100 mls/hr 05/14/21 02:59 05/14/21 03:37 Nss 1000ml IV 06/13/21 02:58 100 mls/hr .Q10H DUSTIN Administration Famotidine 20 mg/ Syringe 5 mls @ 2.5 mls/min 05/14/21 05:30 05/14/21 06:06 IV 06/13/21 05:29 2.5 mls/min BID DUSTIN Administration NPO Date Last Intake of Fluids: 05/13/21 Date Last Intake of Solids: 05/12/21 Past Medical History Medical History (Updated 05/14/21 @ 14:47 by Pilo Wright MD) Anemia Hyperlipidemia Right bundle branch block Past Family History Family History Father Cardiac disorder Hypertension Uncle Colorectal cancer Denies family history of Ovarian cancer Prostate cancer Breast cancer Past Surgical History Surgical History S/P LASIK surgery Social History Smoking Status: Former smoker Smoking End Date: 32 years ago Hx Alcohol Use: No Hx Substance Use: No substance use type: does not use Physical Exam Vital Signs Last Vital Signs Temp 36.8 C 05/14/21 03:00 Pulse 67 05/14/21 14:33 Resp 18 05/14/21 14:33 BP 110/57 L 05/14/21 14:33 Pulse Ox 95 05/14/21 14:33 Testing Laboratory Results 05/14/21 07:11 05/14/21 07:11 Urine Color Red 05/13/21 21:28 Urine Appearance Turbid (Clear) A 05/13/21 21:28 Urine pH (4.5-7.5) 05/13/21 21:28 Ur Specific [place] 1.017 (1.000-1.030) 05/13/21 21:28 Urine Protein (Negative) 05/13/21 21:28 Urine Glucose (UA) (Negative) 05/13/21 21:28 Urine Ketones (Negative) 05/13/21 21:28 Urine Nitrite (Negative) 05/13/21 21:28 Ur Leukocyte Esterase (Negative) 05/13/21 21:28 Urine RBC >30 /hpf (0-4) H 05/13/21 21:28 Urine WBC 10-30 /hpf (0-5) H 05/13/21 21:28 Ur Epithelial Cells 0-5 /lpf (0-5) 05/13/21 21:28 05/13/21 21:28 Urine Culture - Preliminary Urine,Clean Catch No growth - Less than 1,000 colonies/mL, Final report to follow. Electrocardiogram Date: 05/13/21 Findings: + NSR @ (74) and + RBBB
--- NOTE | 2021-05-14 16:14 | Operative Report ---
PG Post Operative Report Pre & Post Diagnosis Operation Date: 05/14/21 14:40 Pre-Op Diagnosis: Left kidney mass, Hematuria Post-Op Diagnosis: Left kidney mass, Hematuria I identified the patient and participated in the time-out.: Yes Procedure Operation Date: 05/14/21 14:40 Actual Procedures p Cystoscopy, Meatal dilation, Clot Evacuation(Not Applicable) - Mason Myers MD Surgeon Donald Myers MD Web Portal Developer none Estimated Blood Loss 0 Findings Consistent with Post-Op Diagnosis Specimens none Description of Procedure The patient was identified in the preoperative holding area, appropriate informed consents were reviewed and completed and the patient was transferred to the operative suite. Upon arrival, appropriate antibiotics and anesthesia were administered and the patient was placed in dorsal lithotomy position and prepped and draped in sterile fashion. To begin the case I attempted to pass a 27 Danish resectoscope with 30 degree lens, however, his meatus would not accommodate the scope. I performed a meatal dilation utilizing male urethral sounds. The resectoscope then passed without difficulty. I was able to visualize the entire urethra which had no strictures or other abnormalities. His prostate was modest in size without substantial obstruction. Inspection of the bladder was limited because of blood within the bladder. After entering into the bladder I withdrew the visual obturator and scope and utilized an instrument [place] syringe I was able to irrigate approximately 200 cc of clot out of the bladder. I then reentered with the scope and evaluated. The mucosa was healthy. There was minimal catheter related cystitis but no tumors or other gross abnormalities of the mucosa. There was some erythema surrounding the left UO and I observed both UOs for urine output. Urine output was clear from both sides, however, my strong suspicion is that he likely bled from the left kidney but this is likely an intermittent process. I elected to leave him without a catheter. I drained the bladder and withdrew my scope. He was reversed of anesthesia and taken to the recovery room in stable condition. There were no complications. I attest to the content of the Intraoperative Record and any orders documented therein. Any exceptions are noted below.
--- NOTE | 2021-05-14 16:55 | Anesthesiology Progress Note ---
Date of Service May 14, 2021 Anesthesia Post Procedure Vital Signs Vital Signs: Temp Pulse Pulse Pulse Resp BP BP 05/14/21 16:50 36.9 C 76 16 98/61 L 05/14/21 16:40 74 18 103/56 L 05/14/21 16:30 64 18 92/46 L 05/14/21 16:20 64 18 82/40 L 05/14/21 16:14 36.6 C 54 L 14 82/40 L 05/14/21 14:33 67 18 110/57 L 05/14/21 13:00 36.9 C 71 114/72 05/14/21 03:00 36.8 C 72 14 05/14/21 02:39 58 L 17 106/64 05/14/21 02:30 58 L 17 106/64 05/14/21 02:00 54 L 19 121/72 05/14/21 01:30 58 L 17 126/77 05/14/21 01:00 60 17 146/92 H 05/14/21 00:30 113/79 05/14/21 00:00 121/74 05/13/21 23:30 132/83 05/13/21 23:00 124/71 05/13/21 22:30 124/71 05/13/21 22:00 126/72 05/13/21 21:30 71 22 124/77 05/13/21 21:24 72 74 20 05/13/21 21:19 71 17 131/76 05/13/21 16:57 36.7 C 86 20 117/73 BP Pulse Ox 05/14/21 16:50 96 05/14/21 16:40 94 05/14/21 16:30 98 05/14/21 16:20 96 05/14/21 16:14 98 05/14/21 14:33 95 05/14/21 13:00 94 05/14/21 03:00 106/65 93 05/14/21 02:39 96 05/14/21 02:30 96 05/14/21 02:00 93 05/14/21 01:30 95 05/14/21 01:00 94 05/14/21 00:30 95 05/14/21 00:00 96 05/13/21 23:30 97 05/13/21 23:00 99 07/26/21 22:30 96 05/13/21 22:00 96 05/13/21 21:30 94 05/13/21 21:24 131/76 96 05/13/21 21:19 95 05/13/21 16:57 97 Transfer of Care Handoff Completed per policy Notes Mental Status: alert / awake / arousable Patient Amnestic to Procedure: Yes Nausea / Vomiting: adequately controlled Pain: adequately controlled Airway Patency, RR, SpO2: stable & adequate BP & HR: stable & adequate Hydration State: stable & adequate Anesthetic Complications: no major complications apparent and Pt Satisfied with anesthetic care
[2021-05-14] MEDS ORDERED: Nursing to Pharmacy Communication SCH (18:15)
[2021-05-14] MEDS ORDERED: OPTIRAY 320 100ml IV ONE (18:48)
--- NOTE | 2021-05-14 19:26 | CT Scan Report ---
ABDOMEN AND PELVIS CT WITH AND WITHOUT IV CONTRAST, UROGRAM PROTOCOL CT DOSE: 2516.07 mGycm HISTORY: renal mass with suspected metastatic disease TECHNIQUE: Multiaxial CT images of the abdomen and pelvis were performed both before and after the us e of intravenous contrast to evaluate the urinary system. Maximal intensity projection images were pe rformed at the workstation by the radiologist. A dose lowering technique was utilized adhering to th e principles of ALARA. COMPARISON STUDY: Abdomen and pelvis CT 05/13/2021. FINDINGS: Stable 4 mm left renal stone. No right renal or ureteral calculi. No hydronephrosis. No dougherty spicious filling defects seen within the right renal collecting system or right ureter. The bladder i s only partially opacified on this study. The bladder abnormality seen on the prior study is no longe r present. Therefore, this suggests removal of clot. There are no suspicious filling defects within t he bladder. There is mild asymmetric thickening/edema at the left ureterovesical junction best seen o n image 86. There is also nonspecific urothelial thickening within the upper pole left renal collecti ng system and proximal to mid left ureter. Heterogeneous opacification at the left ureteropelvic junc tion best seen image 172. The left lower pole collecting system is obliterated by the heterogeneous m ass within the lower pole of the left kidney. This heterogeneous enhancing and lobular mass within th e lower pole the left kidney measures approximately 13 x 9 x 8 cm and extends into the distal 5 cm of the left renal vein. Therefore, this is consistent with a renal cell carcinoma. The mass abuts and d isplaces the anterior aspect of Gerota's fascia. There is left perinephric edema and trace edema with in the left pelvic extraperitoneal space.The adrenal glands, liver, spleen, and pancreas are unremark able. Multiple enlarged distal periaortic, left iliac, and left inguinal lymph nodes. There are few e nlarged right external iliac lymph nodes. This is highly suspicious for metastatic disease. The domin ant enlarged left external iliac lymph node measures 2.4 x 1.8 cm and is best seen on image 364. The dominant enlarged right external iliac lymph node measures 2.9 x 1.2 cm on image 363. Gas within the bladder lumen likely due to the recent instrumentation. The prostate gland is mildly enlarged. Trace pelvic free fluid. No bowel wall thickening or obstruction. No suspicious lytic or blastic osseous lesions. IMPRESSION: 1. Redemonstration of a 13 x 9 x 8 cm enhancing mass within the lower pole of the left kidney. This c onsistent with a renal cell carcinoma. There is tumor extension into the distal 5 cm of the left cheikh l vein. 2. Pelvic lymphadenopathy which is highly suspicious for metastatic disease as described above. 3. Interval removal of the bladder abnormality likely representing clot. 4. Focal thickening of the left ureterovesical junction which may represent edema. Please correlate w ith recent cystoscopy results. 5. There is also urothelial thickening within the left renal collecting system and left renal pelvis with heterogeneous filling of the left renal pelvis. This could represent underlying blood clot or po ssibly tumor invasion from the left renal mass. Of note, the left lower pole collecting system is obl iterated by the renal mass. 6. Stable left-sided nephrolithiasis. No hydronephrosis. ACT 112: Negative or not required by law. Electronically signed by: Pilo Carey M.D. 05/14/2021 7:24 PM
--- NOTE | 2021-05-14 19:38 | Hospitalist Progress Note ---
Date of Service May 14, 2021 Assessment & Plan (1) Left kidney mass: Plan: Left kidney mass/bladder mass/gross hematuria/urinary retention/lymphadenopathy suggesting metastases- Continue Deutsch catheter placed in ED initially and has since been removed status post cystoscopy with evacuation of large 200 mL blood clot from the bladder Had meatal dilatation as well Leukocytosis is improving although he is afebrile and there is nothing growing in his urine culture Continue IV fluids with normal saline at 100 mils per hour Urine culture no growth to date but will continue IV ceftriaxone at least through tomorrow CT urogram protocol confirms left large infiltrating renal mass and pelvic lymphadenopathy He will need outpatient follow-up with urology and possibly oncology We will discuss care with urology (2) Mass of bladder: Plan: See above-now resolved-was a large blood clot (3) Hematuria: Plan: See above-now resolved With some very mild acute blood loss anemia with hemoglobin dropping to 11.1 from 12.2 on arrival Follow CBC in the morning (4) Acute urinary retention: Plan: Now resolved, was secondary to hematuria and clotting (5) Hyperlipidemia: Plan: Okay to restart atorvastatin (6) Acute kidney injury: Plan: Creatinine 1.54 upon admission, with range 1.19-1.33. Creatinine is improved down to 1.27 Continue IV fluids NSS 100 mils per hour Repeat laboratories serially Plan: Disposition-continued stay Admission and Anticipated Discharge Date Admission Date: May 14, 2021 Subjective Patient had cystoscopy this morning with urology with evacuation of large 200 mL clot of blood in the bladder and meatal dilation. Deutsch catheter was removed. He then had a CT urogram protocol this evening which I reviewed the results of with him. Again confirms large left renal mass and pelvic lymphadenopathy. He denies chest pain or shortness of breath, no nausea or vomiting, he tolerated p.o. for dinner, last bowel movement yesterday, no abdominal pain. Review of Systems Review of Systems: All systems reviewed & are unremarkable except as noted in HPI & below Physical Exam Constitutional: WD/WN, vitals as above Eyes: + anicteric sclerae ENMT: external ear and nose normal, oropharynx normal Neck: trachea midline, no thyromegaly Respiratory: normal respiratory effort, lungs clear to auscultation Cardiovascular: RRR, no murmur, no edema Chest (Breasts): Chest: normal inspection of chest Gastrointestinal (Abdomen): normal bowel sounds, soft, nontender, no hepatosplenomegaly Musculoskeletal: Extremities: extremities normal to inspection; no cyanosis and no clubbing Skin: no rashes, warm and dry Neurologic: moves all extremities and awake; no focal motor deficits Psychiatric: A+Ox3, euthymic affect Lymphatic: no lymphedema Results & Data Results & Data ([facility]) Vital Signs (Past 12 Hours) Vital Signs Temp Pulse Pulse Resp BP Pulse Ox 05/14/21 18:39 36.7 C 77 16 127/80 94 05/14/21 17:58 36.7 C 74 16 127/80 96 05/14/21 17:00 67 18 99/69 L 93 05/14/21 16:50 36.9 C 76 16 98/61 L 96 05/14/21 16:40 74 18 103/56 L 94 05/14/21 16:30 64 18 92/46 L 98 05/14/21 16:20 64 18 82/40 L 96 05/14/21 16:14 36.6 C 54 L 14 82/40 L 98 05/14/21 14:33 67 18 110/57 L 95 05/14/21 13:00 36.9 C 71 114/72 94 Laboratory Results 05/14/21 05/14/21 05/14/21 Range/Units 07:11 07:11 07:11 WBC 11.72 H (4.8-10.8) K/uL RBC 3.54 L (4.7-6.1) M/uL Hgb 11.1 L (14.0-18.0) g/dL Hct 33.4 L (42-52) % MCV 94.4 (80-100) fL MCH 31.4 (25-34) pg MCHC 33.2 (32-36) g/dL RDW Std Deviation 45.6 (36.4-46.3) fL RDW Coeff of Terri 13.2 (11.5-14.5) % Plt Count 251 (130-400) K/uL MPV 9.5 (7.4-10.4) fL Immature Gran % (Auto) 0.2 % Neut % (Auto) 44.9 % Lymph % (Auto) 45.1 % [place] % (Auto) 8.0 % Eos % (Auto) 1.5 % Baso % (Auto) 0.3 % Neut # (Auto) 5.27 (1.4-6.5) K/uL Lymph # (Auto) 5.28 H (1.2-3.4) K/uL [place] # (Auto) 0.94 H (0.11-0.59) K/uL Eos # (Auto) 0.17 (0-0.5) K/uL Baso # (Auto) 0.04 (0-0.2) K/uL Immature Gran # (Auto) 0.02 (0.00-0.02) K/uL Smudge Cells Present Blood Smear Review Sodium 142 (136-145) mmol/L Potassium 4.0 (3.5-5.1) mmol/L Chloride 111 H (98-107) mmol/L Carbon Dioxide 26 (21-32) mmol/L Anion Gap 4.0 (3-11) BUN 18 (7-18) mg/dl Creatinine 1.27 (0.6-1.4) mg/dl Est Cr Clr Drug Dosing 76.3 Est GFR ( Amer) 69.2 ml/min Est GFR (Non-Af Amer) 59.7 ml/min BUN/Creatinine Ratio 14.3 (10-20) Glucose 85 (70-99) mg/dl Calcium 8.6 (8.5-10.1) mg/dl Magnesium (1.8-2.4) mg/dl Total Bilirubin 0.6 (0.2-1) mg/dl AST 8 L (15-37) U/L ALT 12 (12-78) U/L Alkaline Phosphatase 71 (45-117) U/L Troponin I (0-0.045) ng/ml Total Protein 6.7 (6.4-8.2) gm/dl Albumin 3.0 L (3.4-5.0) gm/dl Globulin 3.7 (2.5-4.0) gm/dl Albumin/Globulin Ratio 0.8 L (0.9-2) TSH (0.300-4.500) uIu/ml Urine Color Urine Appearance (Clear) Urine pH (4.5-7.5) Ur Specific [place] (1.000-1.030) Urine Protein (Negative) Urine Glucose (UA) (Negative) Urine Ketones (Negative) Urine Blood (Negative) Urine Nitrite (Negative) Urine Bilirubin (Negative) Urine Urobilinogen (Negative) Ur Leukocyte Esterase (Negative) Urine RBC (0-4) /hpf Urine WBC (0-5) /hpf Ur Epithelial Cells (0-5) /lpf Urine Bacteria (Negative) COVID-19 Eval Order SARS-CoV-2 (PCR) (Negative) Hepatitis C Ab Screen Neg (Neg) 05/13/21 05/13/21 05/13/21 Range/Units 23:45 23:45 21:28 WBC (4.8-10.8) K/uL RBC (4.7-6.1) M/uL Hgb (14.0-18.0) g/dL Hct (42-52) % MCV (80-100) fL MCH (25-34) pg MCHC (32-36) g/dL RDW Std Deviation (36.4-46.3) fL RDW Coeff of Terri (11.5-14.5) % Plt Count (130-400) K/uL MPV (7.4-10.4) fL Immature Gran % (Auto) % Neut % (Auto) % Lymph % (Auto) % [place] % (Auto) % Eos % (Auto) % Baso % (Auto) % Neut # (Auto) (1.4-6.5) K/uL Lymph # (Auto) (1.2-3.4) K/uL [place] # (Auto) (0.11-0.59) K/uL Eos # (Auto) (0-0.5) K/uL Baso # (Auto) (0-0.2) K/uL Immature Gran # (Auto) (0.00-0.02) K/uL Smudge Cells Blood Smear Review Sodium (136-145) mmol/L Potassium (3.5-5.1) mmol/L Chloride (98-107) mmol/L Carbon Dioxide (21-32) mmol/L Anion Gap (3-11) BUN (7-18) mg/dl Creatinine (0.6-1.4) mg/dl Est Cr Clr Drug Dosing Est GFR ( Amer) ml/min Est GFR (Non-Af Amer) ml/min BUN/Creatinine Ratio (10-20) Glucose (70-99) mg/dl Calcium (8.5-10.1) mg/dl Magnesium (1.8-2.4) mg/dl Total Bilirubin (0.2-1) mg/dl AST (15-37) U/L ALT (12-78) U/L Alkaline Phosphatase (45-117) U/L Troponin I (0-0.045) ng/ml Total Protein (6.4-8.2) gm/dl Albumin (3.4-5.0) gm/dl Globulin (2.5-4.0) gm/dl Albumin/Globulin Ratio (0.9-2) TSH (0.300-4.500) uIu/ml Urine Color Red Urine Appearance Turbid A (Clear) Urine pH (4.5-7.5) Ur Specific [place] 1.017 (1.000-1.030) Urine Protein (Negative) Urine Glucose (UA) (Negative) Urine Ketones (Negative) Urine Blood (Negative) Urine Nitrite (Negative) Urine Bilirubin (Negative) Urine Urobilinogen (Negative) Ur Leukocyte Esterase (Negative) Urine RBC >30 H (0-4) /hpf Urine WBC 10-30 H (0-5) /hpf Ur Epithelial Cells 0-5 (0-5) /lpf Urine Bacteria Negative (Negative) COVID-19 Eval Order Covid19 at [facility] SARS-CoV-2 (PCR) NEGATIVE (Negative) Hepatitis C Ab Screen (Neg) 05/13/21 05/13/21 Range/Units 21:28 21:28 WBC 15.65 H (4.8-10.8) K/uL RBC 3.75 L (4.7-6.1) M/uL Hgb 12.2 L (14.0-18.0) g/dL Hct 35.1 L (42-52) % MCV 93.6 (80-100) fL MCH 32.5 (25-34) pg MCHC 34.8 (32-36) g/dL RDW Std Deviation 45.0 (36.4-46.3) fL RDW Coeff of Terri 13.3 (11.5-14.5) % Plt Count 263 (130-400) K/uL MPV 9.6 (7.4-10.4) fL Immature Gran % (Auto) 0.3 % Neut % (Auto) 51.3 % Lymph % (Auto) 39.1 % [place] % (Auto) 8.2 % Eos % (Auto) 0.8 % Baso % (Auto) 0.3 % Neut # (Auto) 8.04 H (1.4-6.5) K/uL Lymph # (Auto) 6.12 H (1.2-3.4) K/uL [place] # (Auto) 1.29 H (0.11-0.59) K/uL Eos # (Auto) 0.12 (0-0.5) K/uL Baso # (Auto) 0.04 (0-0.2) K/uL Immature Gran # (Auto) 0.04 H (0.00-0.02) K/uL Smudge Cells Blood Smear Review Sodium 139 (136-145) mmol/L Potassium 4.0 (3.5-5.1) mmol/L Chloride 107 (98-107) mmol/L Carbon Dioxide 27 (21-32) mmol/L Anion Gap 5.0 (3-11) BUN 19 H (7-18) mg/dl Creatinine 1.54 H (0.6-1.4) mg/dl Est Cr Clr Drug Dosing Not Reportable Est GFR ( Amer) 54.8 ml/min Est GFR (Non-Af Amer) 47.3 ml/min BUN/Creatinine Ratio 12.5 (10-20) Glucose 100 H (70-99) mg/dl Calcium 9.1 (8.5-10.1) mg/dl Magnesium 1.8 (1.8-2.4) mg/dl Total Bilirubin 0.8 (0.2-1) mg/dl AST 12 L (15-37) U/L ALT 14 (12-78) U/L Alkaline Phosphatase 86 (45-117) U/L Troponin I < 0.015 (0-0.045) ng/ml Total Protein 7.7 (6.4-8.2) gm/dl Albumin 3.6 (3.4-5.0) gm/dl Globulin 4.1 H (2.5-4.0) gm/dl Albumin/Globulin Ratio 0.9 (0.9-2) TSH 0.963 (0.300-4.500) uIu/ml Urine Color Urine Appearance (Clear) Urine pH (4.5-7.5) Ur Specific [place] (1.000-1.030) Urine Protein (Negative) Urine Glucose (UA) (Negative) Urine Ketones (Negative) Urine Blood (Negative) Urine Nitrite (Negative) Urine Bilirubin (Negative) Urine Urobilinogen (Negative) Ur Leukocyte Esterase (Negative) Urine RBC (0-4) /hpf Urine WBC (0-5) /hpf Ur Epithelial Cells (0-5) /lpf Urine Bacteria (Negative) COVID-19 Eval Order SARS-CoV-2 (PCR) (Negative) Hepatitis C Ab Screen (Neg) Diagnostic Findings Abdomen/Pelvis CT 05/14/21 17:[address] WITH AND WITHOUT IV CONTRAST, UROGRAM PROTOCOL CT DOSE: 2516.07 mGycm HISTORY: renal mass with suspected metastatic disease TECHNIQUE: Multiaxial CT images of the abdomen and pelvis were performed both before and after the use of intravenous contrast to evaluate the urinary system. Maximal intensity projection images were performed at the workstation by the radiologist. A dose lowering technique was utilized adhering to the principles of ALARA. COMPARISON STUDY: Abdomen and pelvis CT 05/13/2021. FINDINGS: Stable 4 mm left renal stone. No right renal or ureteral calculi. No hydronephrosis. No suspicious filling defects seen within the right renal collecting system or right ureter. The bladder is only partially opacified on this study. The bladder abnormality seen on the prior study is no longer present. Therefore, this suggests removal of clot. There are no suspicious filling defects within the bladder. There is mild asymmetric thickening/edema at the left ureterovesical junction best seen on image 86. There is also nonspecific urothelial thickening within the upper pole left renal collecting system and proximal to mid left ureter. Heterogeneous opacification at the left ureteropelvic junction best seen image 172. The left lower pole collecting sys tem is obliterated by the heterogeneous mass within the lower pole of the left kidney. This heterogeneous enhancing and lobular mass within the lower pole the left kidney measures approximately 13 x 9 x 8 cm and extends into the distal 5 cm of the left renal vein. Therefore, this is consistent with a renal cell carcinoma. The mass abuts and displaces the anterior aspect of Gerota's fascia. There is left perinephric edema and trace edema within the left pelvic extraperitoneal space.The adrenal glands, liver, spleen, and pancreas are unremarkable. Multiple enlarged distal periaortic, left iliac, and left inguinal lymph nodes. There are few enlarged right external iliac lymph nodes. This is highly suspicious for metastatic disease. The dominant enlarged left external iliac lymph node measures 2.4 x 1.8 cm and is best seen on image 364. The dominant enlarged right external iliac lymph node measures 2.9 x 1.2 cm on image 363. Gas within the bladder lumen likely due to the recent instrumentation. The prostate gland is mildly enlarged. Trace pelvic free fluid. No bowel wall thickening or obstruction. No suspicious lytic or blastic osseous lesions. IMPRESSION: 1. Redemonstration of a 13 x 9 x 8 cm enhancing mass within the lower pole of the left kidney. This consistent with a renal cell carcinoma. There is tumor extension into the distal 5 cm of the left renal vein. 2. Pelvic lymphadenopathy which is highly suspicious for metastatic disease as described above. 3. Interval removal of the bladder abnormality likely representing clot. 4. Focal thickening of the left ureterovesical junction which may represent edema. Please correlate with recent cystoscopy results. 5. There is also urothelial thickening within the left renal collecting system and left renal pelvis with heterogeneous filling of the left renal pelvis. This could represent underlying blood clot or possibly tumor invasion from the left renal mass. Of note, the left lower pole collecting system is obliterated by the renal mass. 6. Stable left-sided nephrolithiasis. No hydronephrosis. ACT 112: Negative or not required by law. Electronically signed by: Pilo Carey M.D. 05/14/2021 7:24 PM PG Care Time/CCT Total # of Minutes Spent Total Time Spent with Patient: Total time spent is greater than 50% in coordination of care (as documented) at patient's floor/unit and/or counseling patient: Coding Level of Care Code None Diagnoses Left kidney mass N28.89 Mass of bladder N32.89 Hematuria R31.0 Hematuria type: gross Acute urinary retention R33.8 Hyperlipidemia E78.5 Acute kidney injury N17.9 (1) Hematuria Hematuria type: gross Qualified Code(s): R31.0 - Gross hematuria
[2021-05-15] MEDS: SODIUM CHLORIDE 0.9% 1000ML 1,000 ML IV SCH (04:02)
[2021-05-15] MEDS: cefTRIAXone SODIUM 2,000 MG in DEXTROSE 5% 50 ML IV SCH (04:02)
[2021-05-15 07:02] LABS: Basophils # (auto) 0.05 K/uL (0-0.2); Basophils % (auto) 0.5 %; Eosinophils # (auto) 0.23 K/uL (0-0.5); Eosinophils % (auto) 2.2 %; Hematocrit (blood only) 31.5 % (42-52); Hemoglobin 10.6 g/dL (14.0-18.0); Immature Granulocytes # (auto) 0.03 K/uL (0.00-0.02); Immature Granulocytes % (auto) 0.3 %; Lymphocytes # (auto) 4.77 K/uL (1.2-3.4); Lymphocytes % (auto) 46.2 %; Mean Corpuscular Hemoglobin 31.9 pg (25-34); Mean Corpuscular Hgb Conc 33.7 g/dL (32-36); Mean Corpuscular Volume 94.9 fL (80-100); Mean Platelet Volume 9.7 fL (7.4-10.4); Monocytes # (auto) 0.81 K/uL (0.11-0.59); Monocytes % (auto) 7.8 %; Neutrophils # (auto) 4.44 K/uL (1.4-6.5); Platelet Count 238 K/uL (130-400); RDW Coefficient of Variation 13.1 % (11.5-14.5); Red Blood Count 3.32 M/uL (4.7-6.1); White Blood Count 10.33 K/uL (4.8-10.8)
[2021-05-15 07:46] LABS: Albumin Level 2.7 gm/dl (3.4-5.0); BUN Creatinine Ratio 14.1 (10-20); Calcium 8.3 mg/dl (8.5-10.1); Creatinine Clr Calc Pharmacy 70.2 ml/min; Est GFR (African American) 62.6 ml/min
[2021-05-15 07:49] LABS: Albumin Globulin Ratio 0.8 (0.9-2); Bilirubin,Total 0.5 mg/dl (0.2-1); Globulin 3.5 gm/dl (2.5-4.0); Total Protein 6.2 gm/dl (6.4-8.2)
[2021-05-15] MEDS: FAMOTIDINE 20 MG in SYRINGE 3 ML IV SCH (09:04)
--- NOTE | 2021-05-15 12:05 | Urology Progress Note ---
Date of Service May 15, 2021 Assessment & Plan (1) Left kidney mass: (2) Hematuria: Plan: 65 yo M admitted for gross hematuria secondary to left renal mass - POD#1 s/p Cystoscopy, Meatal dilation, Clot Evacuation with Dr. Myers. - Patient is feeling well today, no complaints of pain. - He is afebrile, VSS. - Labs reviewed - Wbc 10.33 and Cr 1.38 - Voiding in urinal without any further hematuria. - Urine culture final with 5k gram positive bacilli, no sensitivities. - Plan of care and CT urogram findings reviewed with Dr. Myers. - CTAP urogram protocol confirms left renal mass with invasion to the renal vein consistent with renal cell carcinoma and pelvic lymphadenopathy. - Given his CT findings and that he recently moved to [place], it would be optimal for him to follow-up at tertiary facility for further evaluation and treatment. - He has been scheduled for follow-up with [facility] urology in [place] (Dr. Ibanez) tomorrow at 11:30am. - The patient is aware and agreeable to plan. - OK for discharge from perspective. - Radiology to provide patient with a copy of CT imaging on disks. - Patient is agreeable to above plan, all questions were answered. Thank you for allowing us to participate in the acute care of Mr. Lucero. Please reconsult us with additional questions, concerns or changes in patient status. Admission and Anticipated Discharge Date Admission Date: May 14, 2021 Subjective Pt examined at bedside this afternoon. Awake, sitting up in bed on arrival. He denies any pain or discomfort at present. Voiding in urinal. Urine is clear, yellow. No fevers or chills. Denies nausea/vomiting. Tolerating PO diet. Review of Systems Constitutional: as per Subjective / HPI Gastrointestinal: as per Subjective / HPI Genitourinary: + as per Subjective / HPI Physical Exam Constitutional: well developed and well nourished; no acute distress Respiratory: normal respiratory effort; no labored breathing Musculoskeletal: Head/Neck/Chest: normocephalic Neurologic: awake Psychiatric: Orientation: alert and oriented x 3 Results & Data ([facility]) Vital Signs (Past 12 Hours) Vital Signs Temp Pulse Resp BP Pulse Ox 05/15/21 07:03 36.8 C 49 L 16 104/62 92 05/14/21 23:10 36.7 C 53 L 16 108/63 95 PG Care Time/CCT Total # of Minutes Spent Total Time Spent with Patient: Total time spent is greater than 50% in coordination of care (as documented) at patient's floor/unit and/or counseling patient: Coding Level of Care Code 18172 Subseq Hosp Care Lvl 2 Diagnoses Left kidney mass N28.89 Hematuria R31.0 Hematuria type: gross (1) Hematuria Hematuria type: gross Qualified Code(s): R31.0 - Gross hematuria
--- NOTE | 2021-05-15 12:47 | Discharge Summary ---
Date of Service May 15, 2021 Admission HPI Per Admitting Provider The patient is a 65-year-old male with a past medical history including hyperlipidemia, who had a CT scan performed in the outpatient setting due to gross hematuria, which revealed a large infiltrative mass arising from the lower pole the left kidney consistent with a neoplasm, which may reflect a renal cell carcinoma or synchronous transitional cell carcinoma given an apparent bladder mass. A 9 x 8.4 cm round masslike abnormality within the posterior aspect of the bladder suspicious for bladder neoplasm. Clot could appear similar, although density is less than expected. This could be confirmed with cystoscopy . There were numerous mildly enlarged left periaortic, left iliac chain and left inguinal lymph nodes suspicious for [place] spread of disease. Principal Diagnosis Gross hematuria, urinary retention, left renal mass Discharge Exam Constitutional WD/WN, vitals as above Eyes + anicteric sclerae Neck trachea midline, no thyromegaly Respiratory normal respiratory effort, lungs clear to auscultation Cardiovascular RRR, no murmur, no edema Chest (Breasts) Chest: normal inspection of chest Gastrointestinal (Abdomen) normal bowel sounds, soft, nontender, no hepatosplenomegaly Musculoskeletal Extremities: extremities normal to inspection; no cyanosis and no clubbing Skin no rashes, warm and dry Neurologic moves all extremities and awake; no focal motor deficits Psychiatric A+Ox3, euthymic affect Lymphatic no lymphedema Discharge Data Allergies Allergy/AdvReac Type Severity Reaction Status Date / Time No Known Allergies Allergy Verified 05/13/21 20:43 Consultations 05/13/21 23:26 ED Decision to Admit Stat 05/14/21 02:59 Consult Urology Routine Procedures Performed Operation Date: 05/14/21 14:40 Actual Procedures s Meatal dilation(Not Applicable) - Mason Myers MD p Cystoscopy, Clot Evacuation(Not Applicable) - Mason Myers MD Ordered Studies 05/14/21 17:17 CT abdomen pelvis wo/w con Routine Abdomen/Pelvis CT 05/14/21 17:[address] WITH AND WITHOUT IV CONTRAST, UROGRAM PROTOCOL CT DOSE: 2516.07 mGycm HISTORY: renal mass with suspected metastatic disease TECHNIQUE: Multiaxial CT images of the abdomen and pelvis were performed both before and after the use of intravenous contrast to evaluate the urinary system. Maximal intensity projection images were performed at the workstation by the radiologist. A dose lowering technique was utilized adhering to the principles of ALARA. COMPARISON STUDY: Abdomen and pelvis CT 05/13/2021. FINDINGS: Stable 4 mm left renal stone. No right renal or ureteral calculi. No hydronephrosis. No suspicious filling defects seen within the right renal c ollecting system or right ureter. The bladder is only partially opacified on this study. The bladder abnormality seen on the prior study is no longer present. Therefore, this suggests removal of clot. There are no suspicious filling defects within the bladder. There is mild asymmetric thickening/edema at the left ureterovesical junction best seen on image 86. There is also nonspecific urothelial thickening within the upper pole left renal collecting system and proximal to mid left ureter. Heterogeneous opacification at the left ureteropelvic junction best seen image 172. The left lower pole collecting system is obliterated by the heterogeneous mass within the lower pole of the left kidney. This heterogeneous enhancing and lobular mass within the lower pole the left kidney measures approximately 13 x 9 x 8 cm and extends into the distal 5 cm of the left renal vein. Therefore, this is consistent with a renal cell carcinoma. The mass abuts and displaces the anterior aspect of Gerota's fascia. There is left perinephric edema and trace edema within the left pelvic extraperitoneal space.The adrenal glands, liver, spleen, and pancreas are unremarkable. Multiple enlarged distal periaortic, left iliac, and left inguinal lymph nodes. There are few enlarged right external iliac lymph nodes. This is highly suspicious for metastatic disease. The dominant enlarged left external iliac lymph node measures 2.4 x 1.8 cm and is best seen on image 364. The dominant enlarged right external iliac lymph node measures 2.9 x 1.2 cm on image 363. Gas within the bladder lumen likely due to the recent instrumentation. The prostate gland is mildly enlarged. Trace pelvic free fluid. No bowel wall thickening or obstruction. No suspicious lytic or blastic osseous lesions. IMPRESSION: 1. Redemonstration of a 13 x 9 x 8 cm enhancing mass within the lower pole of the left kidney. This consistent with a renal cell carcinoma. There is tumor extension into the distal 5 cm of the left renal vein. 2. Pelvic lymphadenopathy which is highly suspicious for metastatic disease as described above. 3. Interval removal of the bladder abnormality likely representing clot. 4. Focal thickening of the left ureterovesical junction which may represent edema. Please correlate with recent cystoscopy results. 5. There is also urothelial thickening within the left renal collecting system and left renal pelvis with heterogeneous filling of the left renal pelvis. This could represent underlying blood clot or possibly tumor invasion from the left renal mass. Of note, the left lower pole collecting system is obliterated by the renal mass. 6. Stable left-sided nephrolithiasis. No hydronephrosis. ACT 112: Negative or not required by law. Electronically signed by: Pilo Carey M.D. 05/14/2021 7:24 PM Hospital Course (1) Left kidney mass: Left kidney mass/bladder mass/gross hematuria/urinary retention/lymphaden opathy suggesting metastases- Initially had Deutsch catheter placed in ED for urinary retention secondary to blood clots in the bladder-but then this was removed status post cystoscopy with evacuation of large 200 mL blood clot from the bladder Had meatal dilatation as well at that time He is voiding on his own without any further hematuria CT urogram protocol confirms left 13 x 9 x 8 cm large infiltrating renal mass with invasion to the renal vein consistent with renal cell carcinoma and pelvic lymphadenopathy Leukocytosis is resolved and he is afebrile; urine culture negative for growth Received IV fluids but is not having any pain He is stable for discharge to home and has already had outpatient follow-up scheduled with a urologist in [place] at 1130 on 05/16. He has already moved to [place] and it would be optimal for him to have nephrectomy in tertiary care facility that has interventional radiology in case of bleeding due to the fact that the tumor is invading into the renal vein. If he has any further hematuria, urology recommends does not need to return to ER unless is having recurrent urinary retention-this was discussed with patient at the time of discharge. No further antibiotics needed as urine culture is negative He will need outpatient follow-up with urology and likely oncology I discussed care with Dr. Myers of urology on the day of discharge (2) Mass of bladder: See above-now resolved-was a large blood clot and was then absent on repeat CT after evacuation of clot (3) Hematuria: See above-now resolved With some very mild acute blood loss anemia with hemoglobin dropping to 10.7 from 12.2 on arrival Hemodynamically stable no further hematuria Avoid blood thinners after discharge (4) Acute urinary retention: Now resolved, was secondary to hematuria and clotting (5) Hyperlipidemia: Continue atorvastatin (6) Acute kidney injury: Creatinine 1.54 upon admission, with range 1.19-1.33. Creatinine is improved down to 1.3 Disposition-stable for discharge to home Total Time Total Time Spent Total Time Spent (In Minutes): 35 minutes Discharge Plan Discharge Items Patient Disposition: Home - Self-Care Reason For Visit: urinary retention, renal and bladder mass, gross h Discharge Diagnosis: Kidney mass, gross hematuria, urinary retention Condition on Discharge: Fair Activity: As commented below Lifting: Gradually increase as tolerated Bathing: No limitations Exercise/Sports: As tolerated Non-emergency contact: Primary Care Provider and Urologist Call non-emergency contact if: you have any medication questions and your symptoms worsen Follow-up/Referrals: Pro,Young Blackburn MD [Primary Care Provider] - (Follow-up within 1 to 2 weeks) Diet: Low Sodium (2gm) Addtl Attending Provider Instructions: You are admitted with blood in your urine which was blocking your urine from exiting the bladder. You had a cystoscopy procedure to remove the blood clot from the bladder and the bleeding has cleared up. Unfortunately, you are found to have a large tumor growing on your left kidney which is invading into the renal vein. The urologist is recommending that you have more urgent surgery to remove the tumor. Because you are moving to [place], arrangements have been made for you to see a urologist there which is already scheduled for tomorrow as you know. You may have continued bleeding in the urine at times but as long as you are able to get your urine out, there is no need to return to the hospital. If you are not able to get your urine out, please come to the hospital right away. Please do not take any blood thinners such as aspirin or NSAIDs (ibuprofen, Motrin, Advil, Aleve, naproxen, etc.). Best wishes to you moving forward. Pending Studies at Discharge: No Stand-Alone Forms: [facility] [employer] Medications and DC Order Prescriptions: Continued atorvastatin 10 mg tablet 10 mg PO DAILY Qty: 90 RF: 3 Ocuvite Adult 50 Plus 250-5-1 mg capsule 2 cap PO DAILY RF: 0 Discharge Orders: Discharge Order (Routine); Ordered 05/15/21 Ordered By: Abi Duarte Admission Data Admit Date/Time: 05/14/21 00:39 Attending Provider: Abi Duarte Admit Provider: Roel Goodwin Primary Care Provider: Young Arenas Other Providers: Roel Goodwin ; Mason Myers Coding Level of Care Code 56131 OBS Care - Discharge Diagnoses Left kidney mass N28.89 Mass of bladder N32.89 Hematuria R31.0 Hematuria type: gross Acute urinary retention R33.8 Hyperlipidemia E78.5 Acute kidney injury N17.9
== END 2021-05-15 14:05 | disposition home or self-care (01) ==
LOC: 3N 16:21 → ED 16:21 → SUATTDRO 05-14 00:39 → 3N 05-14 02:39